=== PATIENT | male | born 1945 | race Caucasian/White ===

== ENCOUNTER 2023-10-28 16:39 | Inpatient (IN) | payer MEDICARE ==
[2023-10-28] MEDS ORDERED: Ondansetron ODT 4 MG TAB PO PRN (20:39)
[2023-10-28] MEDS ORDERED: hydrALAZINE 20 MG/ML VIAL SLOW IVP PRN (20:39)
[2023-10-28] MEDS ORDERED: Morphine 2 MG/ML VIAL SLOW IVP PRN (20:39)
[2023-10-28 21:59] VITALS: BMI 33.7
[2023-10-28] MEDS ORDERED: Oxazepam 10 MG CAP PO SCH (22:00)
[2023-10-28] MEDS: Sodium Chloride 0.9% 1,000 ML IV SCH (22:38)
[2023-10-28] MEDS ORDERED: TETANUS, DIPHTHERIA TOX,ADULT (TDVAX) 0.5 ML VIAL IM ONE (23:00)
[2023-10-28] MEDS ORDERED: Piperacillin/Tazobactam 3.375 GM in Sodium Chloride 0.9% 100 ML IVPB SCH (23:00)
[2023-10-29] MEDS: Acetaminophen 325 MG TAB PO SCH ×4 (01:10→17:11)
[2023-10-29] MEDS ORDERED: Piperacillin/Tazobactam 3.375 GM in Sodium Chloride 0.9% 100 ML IVPB SCH ×2 (03:00→12:00)
[2023-10-29 06:08] LABS: #Monocytes 1.2 thou/uL (0.11-0.59); #Neutrophils 10.6 thou/uL (1.40-6.50); %Basophils 0.2 % (0.0-1.0); %Eosinophils 0.3 % (0.0-10.0); %Lymphocytes 9.6 % (21.0-51.0); %Monocytes 8.8 % (0.0-10.0); %Neutrophils 80.4 % (42.0-75.0); Hematocrit 37.8 % (42.0-52.0); Hemoglobin 12.3 g/dL (14.0-18.0); Mean Corpuscular HGB CONC 32.5 g/dL (32.0-36.0); Mean Corpuscular Hemoglobin 31.1 pg (27.0-31.0); Mean Corpuscular Volume 95.5 fl (78.0-98.0); Mean Platelet Volume 10.9 fL (7.4-10.4); Platelet Count 148 10x3/uL (130-400); RBC Distribution Width 13.1 % (11.5-14.5); Red Blood Cell (RBC) Count 3.96 mill/uL (4.70-6.10); White Blood Cell (WBC) Count 13.2 10x3/uL (4.8-10.8)
[2023-10-29 06:37] LABS: ALT (SGPT) Less than 7 U/L (8-55); AST (SGOT) 11 U/L (5-34); Albumin 3.6 g/dL (3.4-4.8); Alkaline Phosphatase 42 U/L (40-110); Anion Gap 13 mmol/L (10-20); BUN (Urea Nitrogen) 19 mg/dL (8.4-25.7); Calc. Creatinine Clearance 90 mL/min (70-130); Calcium 8.1 mg/dL (7.8-10.44); Carbon Dioxide 20 mmol/L (23-31); Chloride 108 mmol/L (98-107); Estimated GFR 68; Globulin 2.7 g/dL (2.4-3.5); Glucose 82 mg/dL (83-110); Potassium 3.2 mmol/L (3.5-5.1); Protein, Total 6.3 g/dL (5.8-8.1); Sodium 138 mmol/L (136-145)
[2023-10-29] MEDS: Cyanocobalamin (Vitamin B-12) 1,000 MCG TAB PO SCH (08:08)
[2023-10-29] MEDS: Folic Acid 1 MG TAB PO SCH (08:08)
[2023-10-29] MEDS: Sodium Chloride 0.9% 1,000 ML IV SCH ×3 (08:10→23:00)
[2023-10-29] MEDS ORDERED: Succinylcholine 200 MG/10 ml SYRINGE FS ONE ×2 (12:28→12:42)
[2023-10-29] MEDS ORDERED: Ondansetron PF 4 MG/2 ML Vial ONE ×2 (12:28→12:42)
[2023-10-29] MEDS ORDERED: Lidocaine 1% PF 5 ML VIAL ONE ×2 (12:28→12:42)
[2023-10-29] MEDS ORDERED: PROPOFOL 20 ML ONE (12:28)
[2023-10-29] MEDS ORDERED: fentaNYL PF 100 MCG/2 ML SYRINGE ONE ×2 (12:30→14:09)
[2023-10-29] MEDS ORDERED: PROPOFOL 200 MG/20 ML VIAL ONE (12:42)
[2023-10-29] MEDS ORDERED: Dexamethasone 20 MG/5 ML VIAL ONE (12:42)
[2023-10-29] MEDS ORDERED: NEOSTIGMINE 3 MG/3 ML SYR 3 MG/3 ML SYRINGE ONE ×2 (12:42→13:27)
[2023-10-29] MEDS ORDERED: Rocuronium Bromide 10 MG/ML (10ML VIAL) ONE (12:42)
[2023-10-29] MEDS ORDERED: Glycopyrrolate 0.2 MG/ML 5 ML SYRINGE ONE ×2 (12:42→13:27)
[2023-10-29] MEDS ORDERED: Dexamethasone 4 mg/ml Vial ONE (12:58)
[2023-10-29] MEDS ORDERED: Ondansetron HCl/PF 4 MG/2 ML Vial IVP PRN (13:11)
[2023-10-29] MEDS ORDERED: Morphine Sulfate 2 MG/ML SYRINGE SLOW IVP PRN (13:11)
[2023-10-29] MEDS ORDERED: Promethazine HCl 25 MG/ML VIAL IM PRN (13:11)
[2023-10-29] MEDS ORDERED: HYDROmorphone 2 MG/ML VIAL SLOW IVP PRN (13:11)
[2023-10-29] MEDS ORDERED: fentaNYL 50 mcg/mL 1 mL Vial ONE (13:44)
[2023-10-29] MEDS ORDERED: HYDROcodone/Acetaminophen 5/325 mg Tablet PO PRN (14:13)
[2023-10-29] MEDS ORDERED: Morphine 4 MG/ML VIAL SLOW IVP PRN (14:13)
[2023-10-29] MEDS: Piperacillin/Tazobactam 3.375 GM in Sodium Chloride 0.9% 100 ML IVPB SCH (20:40)
[2023-10-29] MEDS: traMADol HCl 50 MG TAB PO PRN (20:49)
[2023-10-30] MEDS: Acetaminophen 325 MG TAB PO SCH ×2 (00:32→06:05)
[2023-10-30] MEDS: Piperacillin/Tazobactam 3.375 GM in Sodium Chloride 0.9% 100 ML IVPB SCH (04:21)
[2023-10-30] MEDS: traMADol HCl 50 MG TAB PO PRN (04:21)
[2023-10-30 04:42] VITALS: TEMP 97.9
[2023-10-30] MEDS: Sodium Chloride 0.9% 1,000 ML IV SCH (06:07)
[2023-10-30] MEDS: Folic Acid 1 MG TAB PO SCH (07:46)
[2023-10-30] MEDS: Cyanocobalamin (Vitamin B-12) 1,000 MCG TAB PO SCH (07:46)
[2023-10-30] MEDS ORDERED: traMADol HCl 50 MG TAB PO PRN ×2 (09:17→09:30)
[2023-10-30] MEDS ORDERED: Ibuprofen 600 MG TAB PO PRN (09:19)
[2023-10-30] MEDS ORDERED: Potassium Chloride 20 MEQ TAB PO SCH (09:30)
[2023-10-30 10:10] LABS: Anion Gap 12 mmol/L (10-20); BUN (Urea Nitrogen) 18 mg/dL (8.4-25.7); Calc. Creatinine Clearance 108 mL/min (70-130); Calcium 7.8 mg/dL (7.8-10.44); Carbon Dioxide 22 mmol/L (23-31); Chloride 107 mmol/L (98-107); Estimated GFR 84; Glucose 155 mg/dL (83-110); Potassium 3.9 mmol/L (3.5-5.1); Sodium 137 mmol/L (136-145)
[2023-10-30] MEDS ORDERED: Acetaminophen 500 MG TAB PO SCH (12:00)
[2023-10-30 15:42] VITALS: BP 129/75
== END 2023-10-30 13:40 | disposition home or self-care (01) | DRG 419 ==
LOC: T4-A 16:39 → OBSVTOIN 20:39
PROVIDERS: ADMIT Surgery; ATTEND Surgery
PROC: 0FT44ZZ Resection of Gallbladder, Percutaneous Endoscopic Approach (ICD-10-PCS; principal; 2023-10-28)
DX: K80.00 Calculus of gallbladder with acute cholecystitis without obstruction (principal); I10 Essential (primary) hypertension; E78.5 Hyperlipidemia, unspecified; K21.9 Gastro-esophageal reflux disease without esophagitis; N40.0 Benign prostatic hyperplasia without lower urinary tract symptoms; Z79.899 Other long term (current) drug therapy; Z98.890 Other specified postprocedural states
CPT/HCPCS: 36415; 80048; 80053; 85025; 88304; A4649; C1713; J1100; J2405; J2543; J2704; J3010; J3490; J7050

== ENCOUNTER 2023-12-09 16:00 | Outpatient (CLI) | payer MEDICARE | END 2023-12-09 16:01 | disposition home or self-care (01) | LOC: SLEEPLAB 16:00 | PROVIDERS: ATTEND Family Medicine | DX: G47.33 Obstructive sleep apnea (adult) (pediatric) (principal); R53.83 Other fatigue; E66.9 Obesity, unspecified; R06.83 Snoring; I10 Essential (primary) hypertension; K21.9 Gastro-esophageal reflux disease without esophagitis; E78.5 Hyperlipidemia, unspecified; G47.61 Periodic limb movement disorder; Z68.35 Body mass index [BMI] 35.0-35.9, adult | CPT/HCPCS: 95810 ==

== ENCOUNTER 2024-12-08 12:53 | Outpatient (CLI) | payer MEDICARE ==
[~2024-12-08 12:53] MED LIST: Iopamidol 370 76% 100 ML VIAL ONE
== END 2024-12-08 12:54 | disposition home or self-care (01) ==
LOC: BICCT 12:53
PROVIDERS: ATTEND Family Medicine
DX: R10.9 Unspecified abdominal pain (principal); K55.8 Other vascular disorders of intestine
CPT/HCPCS: 36415; 74177; 80053; 81001; 82565; 83690; 85025; 87086